=== PATIENT | male | born 1965 | race African-American/Black ===

== ENCOUNTER 2019-04-04 10:10 | Emergency (ER) | payer OTHER ==
[~2019-04-04] VITALS: Ht 175.3 cm; Wt 80.7 kg
[2019-04-04 10:55] LABS: PLATELET COUNT 271 K/uL (142-355)
[2019-04-04 11:14] LABS: POTASSIUM 3.6 mmol/L (3.6-5.2)
[2019-04-04 11:38] VITALS: BP 107/71; TEMP 98.3
== END 2019-04-04 12:22 | disposition home or self-care (01) ==
LOC: ED 10:10
PROVIDERS: Emergency Medicine
DX: R51 Headache (principal); G47.00 Insomnia, unspecified
CPT/HCPCS: 36415; 80053; 85027; 93005; 96372; 99284; J1885